=== PATIENT | male | born 1970 | race Two or more races ===

== ENCOUNTER 2023-07-14 23:34 | Emergency (ER) | payer OTHER ==
[~2023-07-14] VITALS: Ht 167.6 cm; Wt 72.6 kg
[2023-07-15] MEDS ORDERED: KETO10TA2 (00:20)
== END 2023-07-15 | disposition left against medical advice (07) ==
LOC: ER 23:35
DX: Z53.21 Procedure and treatment not carried out due to patient leaving prior to being seen by health care provider (principal)